=== PATIENT | female | born 1985 | race Caucasian/White ===

== ENCOUNTER → 2023-07-30 14:53 | Outpatient (REF) | payer BC, SELFPAY | LOC: DHCBS MAIN 14:53 | PROVIDERS: ATTENDING PHYSICIAN Internal Medicine Cardiovascular Disease; FAMILY PHYSICIAN Family Medicine | DX: R00.2 Palpitations (principal) | CPT/HCPCS: 93306 ==

== ENCOUNTER → 2023-09-14 15:36 | Outpatient (REF) | payer BC, SELFPAY | LOC: RAD 15:36 | PROVIDERS: ATTENDING PHYSICIAN Physician Assistant Medical | DX: M25.561 Pain in right knee (principal) | CPT/HCPCS: 73564 ==

== ENCOUNTER → 2024-10-13 06:40 | Outpatient (REF) | payer BC, SELFPAY | LOC: HWRAD 06:40 | PROVIDERS: ATTENDING PHYSICIAN Internal Medicine Rheumatology; FAMILY PHYSICIAN Physician Assistant Medical | DX: M05.9 Rheumatoid arthritis with rheumatoid factor, unspecified (principal); R94.5 Abnormal results of liver function studies | CPT/HCPCS: 76700 ==